=== PATIENT | male | born 2005 | race Caucasian/White ===

== ENCOUNTER 2023-03-13 14:00 | Outpatient (RCR) | payer BC, SELFPAY ==
[2023-03-19] MEDS: FLU VACC QS 23-24(6MS UP)CEL/PF 60 MCG/0.5 ML SYRINGE IM (16:05)
== END 2023-03-13 16:35 | disposition home or self-care (01) ==
LOC: VACCLI 14:00
PROVIDERS: PCP Family Medicine; Visit Provider Family Medicine
DX: Z23 Encounter for immunization (principal)
CPT/HCPCS: 90674; G0008

== ENCOUNTER 2023-09-02 13:43 | Outpatient (OUT) | payer BC, SELFPAY ==
[2023-09-02 14:27] LABS: Basophils Percent Auto 0.5 % (0.2-2.0); Eosinophils Absolute Auto 0.1 10^3/uL (0.0-0.7); Eosinophils Percent Auto 1.9 % (0.9-7.0); Hematocrit 47.3 % (42.0-54.0); Immature Granulocytes Abs Auto 0.01 10^3/uL (0.00-0.03); Immature Granulocytes Pct Auto 0.2 % (0.0-0.5); Lymphocytes Absolute Auto 2.1 10^3/uL (1.2-3.8); Lymphocytes Percent Auto 33.9 % (20.5-60.0); Mean Corpuscular HGB Conc 33.8 g/dL (29.9-35.2); Mean Corpuscular Hemoglobin 29.7 pg (25.9-34.0); Mean Corpuscular Volume 87.8 fL (80.0-94.0); Mean Platelet Volume 9.8 fL (9.5-13.5); Monocytes Absolute Auto 0.4 10^3/uL (0.3-0.8); Monocytes Percent Auto 6.7 % (1.7-12.0); Neutrophils Absolute Auto 3.6 10^3/uL (1.4-6.5); Neutrophils Percent Auto 56.8 % (43.0-75.0); Platelet Count 248 10^3/uL (150-450); Red Blood Count 5.39 10^6/uL (4.70-6.10); Red Cell Distribution Width 12.3 % (11.0-15.0); White Blood Count 6.3 10^3/uL (4.0-11.0)
[2023-09-02 14:35] LABS: Anion Gap 11.6; BUN Creatinine Ratio 14.8; Calcium 8.9 mg/dL (8.5-10.1); Carbon Dioxide 31.3 mmol/L (21.0-32.0); Chloride 103 mmol/L (98-107); Estimated GFR (African America >60 (>=60); Estimated GFR (Non-African Ame >60 (>=60); Glucose 73 mg/dL (74-106); Potassium 3.9 mmol/L (3.5-5.1); Sodium 142 mmol/L (136-145); Thyroid Stimulating Hormone 1.221 uIU/mL (0.358-3.740)
[2023-09-02 16:59] LABS: Mono Screen NEGATIVE (NEGATIVE)
[2023-09-02 17:00] LABS: Internal Control Within Normal Limits
== END 2023-09-02 13:44 | disposition home or self-care (01) ==
LOC: LAB 13:45
PROVIDERS: PCP Family Medicine; Visit Provider Family Medicine
DX: R53.83 Other fatigue (principal)
CPT/HCPCS: 36415; 80048; 82728; 84443; 85025; 86308

== ENCOUNTER 2024-03-22 13:24 | Outpatient (OUT) | payer BC, SELFPAY ==
--- NOTE | 2024-03-22 13:30 | ECG_ITS ---
[facility] Test Date: 2024-03-22 Pat Name: REKHA CARROLL Department: Room: - Gender: Male [employer] C[employer]er: : 2005 Requested By: JESSICA ORTIZ Order Number: [id number] Reading MD: GALILEA REEVES Measurements Intervals [place] Rate: 69 P: 55 [place]: 113 QRS: 86 QRSD: 101 T: 43 QT: 372 QTc: 400 Interpretive Statements SINUS RHYTHM WITH SHORT [place] INTERVAL WARNING: DATA QUALITY MAY AFFECT INTERPRETATION No previous ECG available for comparison Electronically Signed On 03-22-2024 20:28:31 EST by GALILEA REEVES
--- NOTE | 2024-03-22 13:30 | CA_ITS ---
Patient Name: REKHA CARROLL MR#: [id number] : 2005 Exam Date: 03/22/2024 Ordering Doctor: DR JESSICA ORTIZ M.D. ECHOCARDIOGRAM REPORT PROCEDURE: CA ECHO DOPPLER COMPLETE INDICATIONS: Chest pain, tachycardia COMPARISON: None. DESCRIPTION: COMPLETE ECHOCARDIOGRAM Real-time transthoracic echocardiography with 2D, M-mode, spectral and color flow Doppler performed. QUALITY: Technical quality was good. LEFT VENTRICLE: Normal chamber size. Normal left ventricular wall thickness. LV EF: Normal left ventricular ejection fraction, (>55%). DIASTOLIC: Normal diastolic function. ATRIAL SEPTUM: Visually appears intact. LEFT ATRIUM: Normal chamber size. RIGHT ATRIUM: Normal chamber size. RIGHT VENTRICLE: Normal chamber size. Normal right ventricular systolic function. TRICUSPID VALVE: Normal mobility and thickness. No stenosis with no regurgitation. MITRAL VALVE: Normal mobility and thickness. No evidence of mitral valve stenosis. There is no mitral annular calcification. Trivial mitral regurgitation. AORTIC VALVE: Normal trileaflet appearance. No visible sclerosis. Normal leaflet mobility. No evidence of aortic valve stenosis. No aortic regurgitation. AORTIC ROOT: Normal diameter and appearance. Ascending aorta is normal in size. PULMONIC VALVE: Normal thickness and mobility. No stenosis. Trace regurgitation. PERICARDIUM: No evidence of pericardial effusion. IVC: Normal size and Coll[place] with inspirations. PLEURA: CONCLUSION: Normal left ventricular stock function without wall motion abnormalities, ejection fraction 55% Normal right ventricle size and systolic function No significant valvular abnormalities Adult Echocardiography Procedure Report Left Ventricle LVEDD (3.7 - 5.6 cm): 4.03 cm LVESD (2.2 - 4.0 cm): 2.20 cm LVIVS thickness (0.6 - 1.2 cm): 1.02 cm LVPW thickness (0.5 - 1.0 cm): 0.61 cm e': 0.21 m/s E - e': 3.52 LVOT Max Gradient: 3.79 mm[Hg] LVOT Area (cm2): 0.97 m/s Peak Velocity (LVOT): 0.97 m/s Mean Velocity (LVOT): 0.61 m/s LVOT Diameter 2.50 cm Left Atrium LA Volume Index (2D A2C): 16.53 ml/m2 Left Atrium Systolic Dimension: 2.69 cm Mitral Valve MV E to A Ratio: 2.58 Mitral Valve A-Wave Peak Velocity: 0.28 m/s Mitral Valve E-Wave Peak Velocity: 0.73 m/s Right Ventricle Aorta AO Root Diam: 3.06 cm Ascending Ao Diam: 2.44 cm Aortic Valve AoV Area (Peak Derek): 5.11 cm2, 5.11 cm2 AoV Area (VTI): 4.44 cm2, 4.44 cm2 Peak Velocity(Antegrade Flow): 0.93 m/s Peak Gradient(Antegrade Flow): 3.48 mm[Hg] Mean Velocity(Antegrade Flow): 0.64 m/s Mean Gradient(Antegrade Flow): 1.90 mm[Hg] Velocity Time Integral: 19.91 cm Tricuspid Valve Pulmonic Valve Mean Gradient: 2.91 mm[Hg] Mean Velocity: 0.78 m/s Peak Velocity: 1.26 m/s, 0.96 m/s Peak Gradient: 3.68 mm[Hg], 6.39 mm[Hg] Right Atrium Right Atrium Systolic Pressure: 17.77 ml, 17.77 ml Dictated by: Dinh Diamond MD on 03/22/2024 at 15:40 Approved by: Dinh Diamond MD on 03/22/2024 at 15:44
== END 2024-03-22 13:25 | disposition home or self-care (01) ==
LOC: CARD 13:26
PROVIDERS: PCP Family Medicine; Visit Provider Family Medicine
DX: R00.0 Tachycardia, unspecified (principal); R07.9 Chest pain, unspecified
CPT/HCPCS: 93005; 93306

== ENCOUNTER 2024-04-06 08:01 | Outpatient (OUT) | payer BC, SELFPAY ==
--- NOTE | 2024-04-06 | PCN_ITS ---
CARDIAC STRESS TEST Requesting Physician: Procedure Date: 04/06/2024 EXERCISE STRESS TEST INDICATION FOR THE PROCEDURE: Chest pain. Procedure in details, including risks and benefits was discussed with the patient and he was agreeable to proceed. Resting EKG showed normal sinus rhythm, heart rate 77 beats per minute, normal EKG. Resting blood pressure 106/72 mm/Hg. The patient was exercised according to standard protocol, and he was able to finish 12 minutes and 43 seconds of exercise, achieving 16.1 METS and max heart rate of 173 beats per minute, which represents 86% of age predicted maximum heart rate. Peak blood pressure 160/82 mm/Hg. Exercise was terminated due to achievement of target heart rate and legs fatigue. The patient reported chest pain. EKG during exercise, at peak exercise, and during recovery did not show any significant T or ST changes or any arrhythmias. CONCLUSION: 1. Maximal stress test achieving 86% of age predicted maximum heart rate. 2. Good exercise terminals. 3. This stress test is negative for exercise induced ischemic EKG changes or arrhythmias. Patient reported chest pain at peak exercise, which resolved during recovery. MTDD
--- OUTSIDE RECORDS SUMMARY | 2024-04-06 08:07 | XMS_ITS | CCD ---
Author Organization [facility] Care Team Providers Care Portfolio Administrator Name Role Phone DR KELLY ORTIZ Attending Unavailable DIANA, DR KELLY Cooper Consulting Unavailable DR KELLY ORTIZ Primary Care Unavailable DR KELLY ORTIZ Admitting Unavailable Kelly Ortiz MD Primary Care Provider KELLY ORTIZ Primary Care Unavailable LATASHA HUTTON Attending Unavailable LATASHA HUTTON Referring Unavailable Rogerio Gutierrez Attending Unavailab Rogerio Alonzo Admitting Unavailab francine REEVES FAMILY, PHYSICIAN Primary Care Unavailable MRAILU DIAMOND Attending Unavailable Medications Completed/Discontinued Medications Medication Drug Class(es) Dates Sig (Normalized) Sig (Original) Amphetamine (1 source) Central Nervous System Stimulant amphetamine sulfate (EVEKEO ORAL) Take by mouth. 0 Active Comment on above: Take by mouth. famotidine 10 mg oral tablet (1 source) Histamine-2 Receptor Antagonist take 1 tablet by mouth twice daily famotidine (PEPCID) 10 mg tablet Take 10 mg by mouth two times a day. 0 Active Comment on above: Take 10 mg by mouth two times a day. lisdexamfetamine dimesylate 30 mg oral capsule (1 source) Central Nervous System Stimulant Start: 12-21-2022 take 1 capsule by mouth once daily in the morning lisdexamfetamine (VYVANSE) 30 mg capsule TAKE 1 CAPSULE BY ORAL ROUTE 1 TIME PER DAY IN THE MORNING TAKE 40 MG + 30 MG DAILY 0 12/21/2022 Active Comment on above: TAKE 1 CAPSULE BY OR AL ROUTE 1 TIME PER DAY IN THE MORNING TAKE 40 MG + 30 MG DAILY rimegepant sulfate (NURTEC ODT ORAL) (1 source) rimegepant sulfa te (NURTEC ODT ORAL) Take by mouth. 0 Active Comment on above: Take by mouth. Problems Active Problems Problem Classification Problem Date Documented Date Episodic/Chronic Attention-deficit, conduct, and disruptive behavior disorders (1 source) Attention deficit hyperactivity disorder; Translations: [Attention-deficit hyperactivity disorder, unspecified type] Onset: 07-02-2012 02-14-2023 Chronic Cardiac dysrhythmias (2 sources) Palpitations; Translations: [Palpitations] Onset: 03-22-2024 Episodic Headache; including migraine (1 source) Migraine; Translations: [Migraine, unspecified, not intractable, without status migrainosus] Onset: 07-02-2012 02-14-2023 Chronic Headache; including migraine (1 source) Headache; Translations: [Headache, unspecified headache type] 02-14-2023 Episodic Nonspecific chest pain (2 sources) Other chest pain; Translations: [Other chest pain] Onset: 03-22-2024 Episodic Other eye disorders (1 source) Red eye; Translations: [Other specified disorders of eye and adnexa] 02-14-2023 Episodic Unclassified (3 sources) CONTACT W/AND (SUSP) EXPOS COVID-19; Translations: [CONTACT W/AND (SUSP) EXPOS COVID-19] Onset: 02-28-2021 Past or Other Problems Problem Classification Problem Date Documented Da te Episodic/Chronic Unclassified (1 source) CONTACT W/AND (SUSP) EXPOS COVID-19; Translations: [CONTACT W/AND (SUSP) EXPOS COVID-19] Onset: 02-22-2021 Results Test Name Value Interpretation Reference Range [facility] ity Office Visiton 03-22-2024 Follow-up visit [id number] Rekha Carroll 2005 M Date Provider Department Center 03/22/2024 [id number] DIAMOND [facility] Family History Problem Relation Age of Onset Hypertension Mother Diabetes type II Father Hypertension Father Stroke Maternal Grandfather Family Status - Relation Status Age at Mother Father Maternal Grandfather Level of Service:89404 [place] OFFICE/OUTPATIENT NEW MODERATE MDM 45 MINUTES Reason for Visit and Comments: Palpitations [335934] - Had echo and EKG done this morning. Says he's stopped taking pysch med and stopped drinking caffeine in the past and still feels palpitations and chest pains. Chest Pain [359485] - C/o chest hurting . Says this always occurs with episodes of palpitations. Shortness of Breath [[id number]] - A little Normal [facility] CNOVon 02-14-2023 CNOV Office Visit (EXPUSQ ) REKHA CARROLL ([id number]) [birth year] M Date Time Provider Department 02/14/23 11:25 AM YURIY BORJA EXPUSQ During your visit today, we recorded the following information about you: Temperature Pulse Blood pressure Weight 98.5 degrees 90/minute 124/80 56.7 kg Yuriy Borja APRN.MARKETING OPERATIONS INTERN 02/14/2023 12:58 PM Signed 17 year old male with a pmhx of headaches; presents to the clinic today for an evaluation of a headache. Pt states that he woke up with discomfort to the right side of his forehead and eye area. States that this will be where he typically gets his headaches; however does not usually have ocular symptoms. Reports that over the preceeding days; he has noticed that both of his eyes would be red in the morning before self resolving. Today; pt states that his right eye symptoms persisted. Pt states that his headache symptoms are similar in location, duration, and character. Recently placed on Nurtec and took one this morning without improvement. Only has taken this one time before; is unsure of its efficacy on his chronic symptoms. Denies any CL use, mucoid drainage, fever, chills, dizziness, worst headache of life, thunderclap headache, vision changes, photophobia, itching, drainage, trauma or pain with eye movement. The history is provided by the patient. No russian language instructor was used. BP 124/80 (BP Site: Right Arm, BP Position: Sitting, BP Cuff Size: Regular Adult) Pulse 90 Temp 36.9 ?C (98.5 ?F) (Temporal) Wt 56.7 kg (125 lb) SpO2 100% ALLERGIES No Known Allergies Current Outpatient Medications Medication Sig Dispense Refill lisdexamfetamine (VYVANSE) 30 mg capsule TAKE 1 CAPSULE BY ORAL ROUTE 1 TIME PER DAY IN THE MORNING TAKE 40 MG + 30 MG DAILY famotidine (PEPCID) 10 mg tablet Take 10 mg by mouth two times a day. rimegepant sulfate (NURTEC ODT ORAL) Take by mouth. amphetamine sulfate (EVEKEO ORAL) Take by mouth. No current facility-administered medications for this visit. There is no problem list on file for this patient. Tobacco Use: Never Alcohol Use: Never Drug Use: Never No family history on file. Review of Systems Constitutional: Negative for chills, fatigue and fever. HENT: Negative for congestion, dental problem, drooling, ear discharge, ear pain, facial swelling, hearing loss, mouth sores, nosebleeds, postnasal drip, rhinorrhea, sinus pressure, sinus pain, sneezing, sore throat, tinnitus, trouble swallowing and voice change. Eyes: Positive for pain (mild discomfort) and redness. Negative for photophobia, discharge, itching and visual disturbance. Respiratory: Negative for cough, chest tightness, shortness of breath and wheezing. Cardiovascular: Negative for chest pain and palpitations. Gastrointestinal: Negative for abdominal pain, diarrhea, nausea and vomiting. Musculoskeletal: Negative for back pain, myalgias and neck stiffness. Skin: Negative for pallor. Neurological: Positive for headaches. Negative for dizziness, tremors, seizures, syncope, facial asymmetry, speech difficulty, weakness, light-headedness and numbness. Physical Exam Vitals reviewed. Constitutional: General: He is not in acute distress. Appearance: Normal appearance. He is normal weight. He is not ill-appearing, toxic-appearing or diaphoretic. HENT: Head: Normocephalic and atraumatic. Right Ear: Tympanic membrane, ear canal and external ear normal. There is no impacted cerumen. Left Ear: Tympanic membrane, ear canal and external ear normal. There is no impacted cerumen. Nose: Nose normal. No congestion. Mouth/Throat: Mouth: Mucous membranes are moist. Pharynx: No oropharyngeal exudate or posterior oropharyngeal erythema. Eyes: General: Lids are normal. Vision grossly intact. No visual field deficit. Right eye: No foreign body, discharge or hordeolum. Left eye: No foreign body, discharge or hordeolum. Extraocular Movements: Extraocular movements intact. Right eye: Normal extraocular motion and no nystagmus. Left eye: Normal extraocular motion and no nystagmus. Conjunctiva/sclera: Right eye: Right conjunctiva is injected. Pupils: Pupils are equal, round, and reactive to light. Right eye: Pupil is round, reactive and not sluggish. No corneal abrasion or fluorescein uptake. Ritu exam negative. Funduscopic exam: Right eye: Red reflex present. Slit lamp exam: Right eye: No corneal flare, corneal ulcer or foreign body. Comments: No abnormality noted on wood's lamp examination Cardiovascular: Rate and Rhythm: Normal rate and regular rhythm. Heart sounds: Normal heart sounds. Pulmonary: Effort: Pulmonary effort is normal. No respiratory distress. Breath sounds: Normal breath sounds. No stridor. No wheezing, rhonchi or rales. Chest: Chest wall: No tenderness. Musculoskeletal: General: Normal range of motion. (more content not included)... Normal [facility] Covid-19 PCR ([facility])on SARS-CoV-2 (COVID-19) RNA KAY+probe Ql (Unsp spec) Not detected Normal NOT DETECTED [facility] Comment on above: Result Comment: This test is not yet anselmo roved or cleared by the [place] FDA. When there are no FDA-approved or cleared tests available, and other criteria are met, FDA can make tests available under an emergency access mechanism called an Emergency Use Authorization (EUA). The EUA for this test is supported by the Combat Control of Health and Human Service's (HHS's) declaration that circumstances exist to justify the emergency use of in vitro diagnostics for the detection and/or diagnosis of the virus that causes COVID-19. This EUA will remain in effect (meaning this test can be used) for the duration of the COVID-19 declaration justifying emergency of IVDs, unless it is terminated or revoked by FDA (after which the test may no longer be used). When diagnostic testing is negative, the possibility of a false negative should be considered in the context of a patient's recent exposures and the presence of clinical signs and symptoms consistent with SARS-CoV-2. Performed By: #### [facility] #### [facility] [address] [address] [address] Leila Bell Vital Signs Date Time Vital Sign Value Performing Clinician Marina soolrzano 02-14-2023 11:39-0500 Body temperature 98.49 [degF] Yuriy Puljic METER TESTER PRIMARY.MARKETING OPERATIONS INTERN Work Phone: [facility] 02-14-2023 11:39-0500 Body weight 56.7 kg Yuriy Puljic METER TESTER PRIMARY.MARKETING OPERATIONS INTERN Work Phone: [facility] 02-14-2023 11:39-0500 Diastolic blood pressure 80 mm[Hg] Yuriy Puljic METER TESTER PRIMARY.MARKETING OPERATIONS INTERN Work Phone: [facility] 02-14-2023 11:39-0500 Heart rate 90 /min Yuriy Puljic METER TESTER PRIMARY.MARKETING OPERATIONS INTERN Work Phone: [facility] 02-14-2023 11:39-0500 SaO2% (BldA) [Mass fraction] 100 % Yuriy Puljic METER TESTER PRIMARY.MARKETING OPERATIONS INTERN Work Phone: [facility] 02-14-2023 11:39-0500 Systolic blood pressure 124 mm[Hg] Yuriy Puljic METER TESTER PRIMARY.MARKETING OPERATIONS INTERN Work Phone: [facility] Encounters Encounter Date Encounter Type Care Provider Facility Start: 03-22-2024 End: 03-22-2024 ambulatory [facility] Start: 02-17-2024 ambulatory Rogerio Knapp acility:[facility] Start: 02-24-2023 End: 02-24-2023 ambulatory LATASHA HUTTON Not Available Start: 02-14-2023 End: 02-14-2023 ambulatory KELLY ORTIZ Facility:[facility] Start: 02-14-2023 End: 02-14-2023 Office outpatient new 30 minutes Yuriy Puljic METER TESTER PRIMARY.MARKETING OPERATIONS INTERN Work Phone: [facility] Comment on above: Red eye (Primary Dx) ; Headache, unspecified headache type Start: 02-22-2021 End: 02-22-[address] KELLY ORTIZ Facility:[facility] Plan of Treatment Date Care Activity Detail Author Start: 01-26-2025 Urine microalbumin profile DTa P,Tdap,Td Vaccine (7 - Td or Tdap) [facility] Start: 11-15-2022 Covid-19 Vaccine ( season) Covid-19 Vaccine ( season) [facility] Start: 11-15-2022 Influenza vaccination Influenza Vacc ine (#1) [facility] Start: 03-17-2022 Depression Assessment Depression Ass essment [facility] Start: 11-23-2021 Meningococcal B Vacc ine: Consider Based On Risk (2 of 2 - Risk Bexsero 2-dose series) Meningococcal B Vaccine: Consider Based On Risk (2 of 2 - Risk Bexsero 2-dose series) [facility] Start: 2021 Hepatitis C Screening Hepatitis C Sc reening [facility] Start: 2021 HIV Screening HIV Screening [facility] Start: 2017 Peds To Adult Transi tion Annual Assessment Peds To Adult Transition Annual Assessment [facility] Start: 2015 Peds To Adult Transi tion Initial Discussion Peds To Adult Transition Initial Discussion [facility] Immunizations Immunization Date Immunization Notes Care Provider Mita wolff 01-04-2020 influenza virus vacc ine, unspecified formulation Yuriy Borja APRN.CNP Work Phone: [facility] Payers Date Payer Category Payer Self-pay 2022 Unknown [id number] 2019 Unknown [id number] 2018 Unknown MMO [employer] PPO [id number] 2018-Present [phone] [address] [place] [address] PPO [id number] 2018 Unknown [id number] 2003 Unknown [id number] 1966 Unknown [id number] Unknown [id number] Social History Date Type Detail Facility Start: 02-14-2023 Tobacco smoking stat us NHIS Never smoked tobacco [facility] Start: 02-14-2023 Tobacco use and exposure Smoke less tobacco non-user [facility] Start: 02-14-2023 Alcohol intake Lifetime non-d griffin (finding) [facility] Start: 02-14-2023 History of Social function [facility] Start: 02-14-2023 Tobacco use panel [facility] Start: 2005 Sex Assigned At [facility] file [facility] Progress note 03-22-2024 Note Date & Type Note Facility 03-22-2024 Note [facility] Note Reason for cardiology consult: Chest pain and palpitation Chief Complaint: Chest pain and palpitation HPI: Rekha Carroll is a 18 y.o. male with history of ADHD. No prior cardiac history. He describes episodes of palpitation when he feels that his suddenly his heart rate goes very fast associated with chest pain, feeling hot and sweaty, usually lasts 15 to 30 minutes and it stops also suddenly. He usually feels weak afterward and he needs to lay down. He states that episodes started about 2 to 3 months ago. They occurs probably 2-3 times a months but when they occur they may happen 3 times a day. He reports that he feels shaking when his heart rate is very fast. He denies feeling dizzy or passing out. He reports that he stopped Vyvanse and caffeine but that did not help. He drinks a lot of water. He reports that he takes Vyvans only when his school to help him to concentrate. He is physically active and he denies any chest pain or shortness of breath at rest or with exertion. He denies orthopnea or paroxysmal nocturnal dyspnea or legs edema or leg discomfort on exertion. As mentioned above he stopped caffeine. He denies smoking, alcohol or illicit drugs. Regarding family history both parents have hypertension, father has diabetes, maternal grandparent had stroke. Cardiology ROS: GENERAL: Denies fever, chills, night sweats, weight loss. HEENT: Denies changes in vision, photophobia, changes in hearing, epistaxis, oral bleeding. CARDIOVASCULAR: Denies chest pain, exertional dyspnea, orthopnea/PND, lower extremity edema, he reports episodes of palpitation associated with chest pain and feeling hot followed by overall weakness. RESPIRATORY: Denies SOB, coughing, wheezing GI: Denies abdominal pain, nausea/vomiting, heartburn, melena/hematochezia. RENAL: Denies dysuria, hematuria, flank pain. MSK: Denies muscle weakness/pain, arthralgias/joint pain. NEUROLOGIC: Denies LOC, weakness, numbness, headaches. SKIN: Denies abnormal rashes or bleeding. PSYCH: Denies significant anxiety, depression, sleep disturbances. Past Medical History He has a past medical history of ADHD and Asthma. Surgical History He has no past surgical history on file. Social History He reports that he has never smoked. He has never used smokeless tobacco. He reports that he does not currently use alcohol. He reports that he does not use drugs. Family History Family History Problem Relation Name Age of Onset Hypertension Mother Diabetes type II Father Hypertension Father Stroke Maternal Grandfather Allergies Patient has no known allergies. Medications Current Outpatient Medications: lisdexamfetamine (Vyvanse) 70 mg capsule, Take 70 mg by mouth in the morning., Disp: , Rfl: Last Recorded Vitals Visit Vitals BP 107/73 (BP Location: Right arm, Patient Position: Sitting) Pulse 75 Ht 1.626 m (5' 4 ) Wt 58.5 kg (129 lb) SpO2 98% BMI 22.14 kg/m??? Smoking Status Never BSA 1.63 m??? Physical Examination: GENERAL: alert and oriented x3, well developed, in no acute distress. HEAD: atraumatic, normocephalic. EYES: DELICIA, EOMI. NECK: trachea midline, no JVD present, no carotid bruits present. CARDIAC: S1, S2 present. RRR. No murmur, rubs, or gallops. RESPIRATORY: CTAB, no increased effort of breathing, no rales, rhonchi, or wheezing. ABDOMEN: soft, nontender, nondistended. EXTREMITIES: no lower extremity edema, peripheral pulses are 2+ bilaterally. No rash/skin discoloration present. NEURO: strength/sensation equal and symmetric in bilateral upper and lower extremities. PSYCH: appropriate mood, affect, and judgement. Labs: 09/02/2023 White blood count 6.3, hemoglobin 16, hematocrit 47, platelets 248 Sodium 142, potassium 3.9, BUN 12, creatinine 0.81, GFR above 60, glucose 73, calcium 8.9 TSH 1.22 Last Images: EKG 03/22/2024 showed normal sinus rhythm with short WA interval, otherwise normal EKG. Echo 03/22/2024 Assessment and Plan: Palpitations associated with chest pain, feeling hot and then tired after resolved. Probably represents paroxysmal SVT He stopped Vyvanse for 1 month but the symptoms continue to happen He totally stopped caffeine and also there was no effect EKG and echo today are normal ADHD, currently on Vyvanse Plan: Continue with current behavior avoiding caffeine and alcohol and increasing fluid intake 30-day event monitor Treadmill stress test to evaluate chest pain and also to evaluate exercise-induced tachyarrhythmia Follow-up in about 6 weeks Marilu Diamond MD,[facility] Progress note 02-14-2023 Note Date & Type Note Facility 02-14-2023 Note HNO ID: [id number] Author: Yuriy Borja APRN.MARKETING OPERATIONS INTERN Service: ? Author Type: Nurse Practitioner Type: Progress Notes Filed: 02/14/2023 12:58 PM Note Text: 17 year old male with a pmhx of headaches; presents to the clinic today for an evaluation of a headache. Pt states that he woke up with discomfort to the right side of his forehead and eye area. States that this will be where he typically gets his headaches; however does not usually have ocular symptoms. Reports that over the preceeding days; he has noticed that both of his eyes would be red in the morning before self resolving. Today; pt states that his right eye symptoms persisted. Pt states that his headache symptoms are similar in location, duration, and character. Recently placed on Nurtec and took one this morning without improvement. Only has taken this one time before; is unsure of its efficacy on his chronic symptoms. Denies any CL use, mucoid drainage, fever, chills, dizziness, worst headache of life, thunderclap headache, vision changes, photophobia, itching, drainage, trauma or pain with eye movement. The history is provided by the patient. No russian language instructor was used. BP 124/80 (BP Site: Right Arm, BP Position: Sitting, BP Cuff Size: Regular Adult) Pulse 90 Temp 36.9 ?C (98.5 ?F) (Temporal) Wt 56.7 kg (125 lb) SpO2 100% ALLERGIES No Known Allergies Current Outpatient Medications Medication Sig Dispense Refill lisdexamfetamine (VYVANSE) 30 mg capsule TAKE 1 CAPSULE BY ORAL ROUTE 1 TIME PER DAY IN THE MORNING TAKE 40 MG + 30 MG DAILY famotidine (PEPCID) 10 mg tablet Take 10 mg by mouth two times a day. rimegepant sulfate (NURTEC ODT ORAL) Take by mouth. amphetamine sulfate (EVEKEO ORAL) Take by mouth. No current facility-administered medications for this visit. There is no problem list on file for this patient. Tobacco Use: Never Alcohol Use: Never Drug Use: Never No family history on file. Review of Systems Constitutional: Negative for chills, fatigue and fever. HENT: Negative for congestion, dental problem, drooling, ear discharge, ear pain, facial swelling, hearing loss, mouth sores, nosebleeds, postnasal drip, rhinorrhea, sinus pressure, sinus pain, sneezing, sore throat, tinnitus, trouble swallowing and voice change. Eyes: Positive for pain (mild discomfort) and redness. Negative for photophobia, discharge, itching and visual disturbance. Respiratory: Negative for cough, chest tightness, shortness of breath and wheezing. Cardiovascular: Negative for chest pain and palpitations. Gastrointestinal: Negative for abdominal pain, diarrhea, nausea and vomiting. Musculoskeletal: Negative for back pain, myalgias and neck stiffness. Skin: Negative for pallor. Neurological: Positive for headaches. Negative for dizziness, tremors, seizures, syncope, facial asymmetry, speech difficulty, weakness, light-headedness and numbness. Physical Exam Vitals reviewed. Constitutional: General: He is not in acute distress. Appearance: Normal appearance. He is normal weight. He is not ill-appearing, toxic-appearing or diaphoretic. HENT: Head: Normocephalic and atraumatic. Right Ear: Tympanic membrane, ear canal and external ear normal. There is no impacted cerumen. Left Ear: Tympanic membrane, ear canal and external ear normal. There is no impacted cerumen. Nose: Nose normal. No congestion. Mouth/Throat: Mouth: Mucous membranes are moist. Pharynx: No oropharyngeal exudate or posterior oropharyngeal erythema. Eyes: General: Lids are normal. Vision grossly intact. No visual field deficit. Right eye: No foreign body, discharge or hordeolum. Left eye: No foreign body, discharge or hordeolum. Extraocular Movements: Extraocular movements intact. Right eye: Normal extraocular motion and no nystagmus. Left eye: Normal extraocular motion and no nystagmus. Conjunctiva/sclera: Right eye: Right conjunctiva is injected. Pupils: Pupils are equal, round, and reactive to light. Right eye: Pupil is round, reactive and not sluggish. No corneal abrasion or fluorescein uptake. Ritu exam negative. Funduscopic exam: Right eye: Red reflex present. Slit lamp exam: Right eye: No corneal flare, corneal ulcer or foreign body. Comments: No abnormality noted on wood's lamp examination Cardiovascular: Rate and Rhythm: Normal rate and regular rhythm. Heart sounds: Normal heart sounds. Pulmonary: Effort: Pulmonary effort is normal. No respiratory distress. Breath sounds: Normal breath sounds. No stridor. No wheezing, rhonchi or rales. Chest: Chest wall: No tenderness. Musculoskeletal: General: Normal range of motion. Cervical back: Normal range of motion and neck supple. Skin: General: Skin is warm. Capillary Refill: Capillary refill takes less than 2 seconds. Neurological: General: No focal deficit present. Mental Status: He is alert and oriented to person, place, a (more content not included)... [facility] Instructions 02-14-2023 Patient Instructions Note Date & Type Note Facility 02-14-2023 Instructions Yuriy Borja APRN.[facility] - 02/14/2023 12:21 PM EST [phone] [facility] PATIENT INFO CONJUNCTIVITIS OVERVIEW Conjunctivitis, also called pinkeye , is defined as an inflammation of the conjunctiva. The conjunctiva is the thin membrane that lines the inner surface of the eyelids and the whites of the eyes (called the sclera). Conjunctivitis can affect children and adults. The most common symptoms of conjunctivitis include a red eye and discharge. There are many potential causes of conjunctivitis, including bacterial or viral infections, allergies, or a non-specific condition (eg, a foreign body in the eye). All types of conjunctivitis cause a red eye, although not everyone with a red eye has conjunctivitis. TYPES OF CONJUNCTIVITIS There are four main types of conjunctivitis: bacterial, viral, allergic, and non-specific. Most cases of infectious conjunctivitis are viral in adults and children; however, bacterial conjunctivitis is more common in children than in adults. Viral conjunctivitis -- Viral conjunctivitis is typically caused by a virus that can also cause the common cold. A person may have symptoms of conjunctivitis alone, or as part of a general cold syndrome, with swollen lymph nodes (glands), fever, a sore throat, and runny nose. Viral conjunctivitis is highly contagious. It is spread by contact, usually with objects which have come into contact with the infected person's eye secretions. As examples, the virus can be transmitted when an infected person touches their eye and then touches another surface (eg, door handle) or shares an object that has touched their eye (eg, a towel or pillow case). The most common symptoms of viral conjunctivitis include redness, watery or mucus discharge, and a burning, dinorah, or gritty feeling in one eye. Some people have morning crusting followed by watery discharge, perhaps with some scant mucus discharge throughout the day. The second eye usually becomes infected within 24 to 48 hours. There is no cure for viral conjunctivitis. Recovery can begin within days, although the symptoms frequently get worse for the first three to five days, with gradual improvement over the following one to two weeks for a total course of two to three weeks. Some people experience morning crusting that continues for up to two weeks after the initial symptoms, although the daytime redness, irritation, and tearing should be much improved. Bacterial conjunctivitis -- Bacterial conjunctivitis is highly contagious, often affecting multiple family members or children within a classroom. Bacterial conjunctivitis is spread by contact, usually with objects which have come into contact with the infected person's eye secretions. As examples, the virus can be transmitted when an infected person touches their eye and then touches another surface (eg, door handle) or shares an object that has touched their eye (eg, a towel or pillow case). The most common symptoms of bacterial conjunctivitis include redness and thick discharge from one eye, although both eyes can become infected. The discharge may be yellow, white, or green, and it usually continues to drain throughout the day. The affected eye often is stuck shut in the morning. Most types of bacterial conjunctivitis resolve quickly and cause no permanent damage when treated with antibiotic eye drops or ointment Non-specific conjunctivitis -- It is possible to develop a red eye and discharge that is not caused by an infection or allergy. The most common causes include one of the following. People with a dry eye may have chronic or intermittent redness or discharge. A person whose eyes are irrigated after a chemical splash may have redness and discharge. A person with a foreign body (eg, dust, eyelash) in the eye may have redness and discharge for 12 to 24 hours after the object is removed. All of these problems generally improve spontaneously within 24 hours. CONJUNCTIVITIS TREATMENT The treatment of conjunctivitis depends upon the cause. For this reason, it is important to have the correct diagnosis before treatment begins. Viral conjunctivitis treatment -- A topical antihistamine/decongestant eye drop may help to relieve the itching and irritation of viral conjunctivitis. These drops are available without a prescription in most pharmacies. However, particular care must be taken to avoid spreading viral infections from one eye to the other -- apply drops only to affected eye and wash hands thoroughly after application. Similar to cold medicines, this treatment may reduce the symptoms but does not shorten the course of the infection. Another option is to use warm or cool compresses, as needed. The irritation and discharge may get worse for three to five days before getting better, and symptoms can persist for two to three weeks. Bacterial conjunctivitis treatment -- Bacterial conjunctivitis is usually treated with an antibiotic eye drop or ointment. When started early, treatment helps to shorten the duration of symptoms, although most cases do resolve spontaneously if no treatment is used. Adults -- Adults are usually treated with an antibiotic eye drop or ointment for five to seven days. Redness, irritation, and eye discharge should begin to improve within 24 to 48 hours. If there is no improvement or if the condition worsens within this time, the person should be evaluated by an appliance counselor. Contact lens wearers -- People who wear contact lenses should be evaluated by a healthcare provider before treatment begins; this is to confirm the diagnosis of conjunctivitis and to be sure that another, more serious condition related to contact lens use (an infection of the cornea), is not present. People who wear contact lenses should avoid wearing the lenses during the first 24 hours of treatment, or until the eye is no longer red. The contact case should be thrown away and the contacts disinfected overnight or replaced (if disposable). Return to work/school -- The safest approach to avoid spreading viral and bacterial conjunctivitis to others is to stay home until there is no longer any discharge from the eye(s). However, this is not practical for most students and for those who work outside the home. Most daycare centers and schools require that students receive 24 hours of eye drops or ointment before returning to school. This treatment helps to prevent the spread of bacterial conjunctivitis, but is not necessary or helpful for children with viral conjunctivitis. Viral conjunctivitis is similar to a cold because it spreads easily between people. Younger children, who may not remember to wash their hands or avoid touching their eyes, should probably not attend school until the discharge has resolved. Older students or adults may choose to attend school/work, although they should limit close contact with others. In addition, adults who have contact with the very old, the very young, and people with a weakened immune system should limit contact with these susceptible individuals. Non-specific conjunctivitis treatment -- The conjunctiva heals quickly after it is injured, and non-specific conjunctivitis usually resolves within a few days without any treatment. However, the eye may feel better faster when it is treated with a lubricant, such as drops or ointments. These products are available without a prescription in most pharmacies. Preservative-free preparations are more expensive and are necessary only for people with a severe case of dry eye and those who are allergic to preservatives. Lubricant drops can be used as often as hourly with no side effects. The ointment provides longer lasting relief but blurs vision temporarily. For this reason, some people use ointment only at bedtime. It may be worthwhile to switch brands if one brand of drop or ointment is irritating, since each preparation contains different active and inactive ingredients and preservatives. Antibiotic or steroid eye drops/ointments are not recommended unless there is a specific reason they are needed (eg, a bacterial infection or inflammatory condition). Using these treatments when they are not needed can lead to serious complications. If the symptoms of conjunctivitis do not improve within two weeks, an examination with an appliance counselor may be recommended. CONJUNCTIVITIS PREVENTION Bacterial and viral conjunctivitis are both highly contagious and spread by direct contact with secretions or contact with contaminated objects. Simple hygiene measures can help minimize transmission to others. Adults or children with bacterial or viral conjunctivitis should not share handkerchiefs, tissues, towels, cosmetics, or bed sheets/pillows with uninfected family or friends. Hand washing is an essential and highly effective way to prevent the spread of infection. Hands should be wet with water and plain soap, and rubbed together for 15 to 30 seconds. It is not necessary to use antibacterial hand soap. Teach children to wash their hands before and after eating and after touching the eyes, coughing, or sneezing. Alcohol-based hand rubs are a good alternative for disinfecting hands if a sink is not available. Hand rubs should be spread over the entire surface of hands, fingers, and wrists until dry, and may be used several times. These rubs can be used repeatedly without skin irritation or loss of effectiveness. HEADACHE GENERAL INFORMATION: Almost everyone has a headache occasionally. Most headaches are caused by tension, eye strain, or emotional upset. Headaches can also occur with many medical illnesses. They may be a side effect of some medications. A headache that occurs without other symptoms and only lasts a few hours probably isn't a cause for concern. INSTRUCTIONS: 1. You may use pitr-soc-rhpupog pain medication such as acetaminophen, ibuprofen, or aspirin unless your doctor recommends otherwise. 2. Try some of the following measures to relieve your headache: Stretch and massage the muscles in your shoulders, neck, jaw, and scalp. Take a hot bath. Rest in a quiet, darkened room. Place a warm or cold wet cloth (whichever feels better to you) over the aching area. 3. Don't skip meals or delay meals for very long. Drink plenty of fluids. 4. Avoid alcoholic beverages and cigarette smoking. These often make a headache worse. 5. Get plenty of rest. A good night's sleep often is the best way to relieve a headache. CONTACT YOUR DOCTOR IF: 1. Your headache gets worse or lasts longer than 24 hours. 2. You develop a temperature over 100.5 F (38 C) 3. You need to take medicine to relieve headache pain more than 3 times a week. RETURN TO THE ED IF: 1. Your headache is different from any headache you ever had before, or is the worst headache of your life. 2. You feel confused or drowsy. 3. Your neck feels stiff. 4. You have a temperature of 102 F (39 C) or higher. 5. You have eye problems such as sensitivity to light or blurred or double vision. 6. You start to vomit. 7. You have difficulty walking, talking, or moving your arms or legs. documented in this encounter [facility] History of Present illness Narrative 02-14-2023 Yuriy Borja APRN.CNP - 02/14/2023 11:45 AM EST Note Date & Type Note Facility 02-14-2023 History of Presen t illness Narrative Images from the original note were not included. 17 year old male with a pmhx of headaches; presents to the clinic today for an evaluation of a headache. Pt states that he woke up with discomfort to the right side of his forehead and eye area. States that this will be where he typically gets his headaches; however does not usually have ocular symptoms. Reports that over the preceeding days; he has noticed that both of his eyes would be red in the morning before self resolving. Today; pt states that his right eye symptoms persisted. Pt states that his headache symptoms are similar in location, duration, and character. Recently placed on Nurtec and took one this morning without improvement. Only has taken this one time before; is unsure of its efficacy on his chronic symptoms. Denies any CL use, mucoid drainage, fever, chills, dizziness, worst headache of life, thunderclap headache, vision changes, photophobia, itching, drainage, trauma or pain with eye movement. The history is provided by the patient. No russian language instructor was used. BP 124/80 (BP Site: Right Arm, BP Position: Sitting, BP Cuff Size: Regular Adult) Pulse 90 Temp 36.9 C (98.5 F) (Temporal) Wt 56.7 kg (125 lb) SpO2 100% ALLERGIES No Known Allergies Current Outpatient Medications Medication Sig Dispense Refill lisdexamfetamine (VYVANSE) 30 mg capsule TAKE 1 CAPSULE BY ORAL ROUTE 1 TIME PER DAY IN THE MORNING TAKE 40 MG + 30 MG DAILY famotidine (PEPCID) 10 mg tablet Take 10 mg by mouth two times a day. rimegepant sulfate (NURTEC ODT ORAL) Take by mouth. amphetamine sulfate (EVEKEO ORAL) Take by mouth. No current facility-administered medications for this visit. There is no problem list on file for this patient. Tobacco Use: Never Alcohol Use: Never Drug Use: Never No family history on file. Review of Systems Constitutional: Negative for chills, fatigue and fever. HENT: Negative for congestion, dental problem, drooling, ear discharge, ear pain, facial swelling, hearing loss, mouth sores, nosebleeds, postnasal drip, rhinorrhea, sinus pressure, sinus pain, sneezing, sore throat, tinnitus, trouble swallowing and voice change. Eyes: Positive for pain (mild discomfort) and redness. Negative for photophobia, discharge, itching and visual disturbance. Respiratory: Negative for cough, chest tightness, shortness of breath and wheezing. Cardiovascular: Negative for chest pain and palpitations. Gastrointestinal: Negative for abdominal pain, diarrhea, nausea and vomiting. Musculoskeletal: Negative for back pain, myalgias and neck stiffness. Skin: Negative for pallor. Neurological: Positive for headaches. Negative for dizziness, tremors, seizures, syncope, facial asymmetry, speech difficulty, weakness, light-headedness and numbness. Physical Exam Vitals reviewed. Constitutional: General: He is not in acute distress. Appearance: Normal appearance. He is normal weight. He is not ill-appearing, toxic-appearing or diaphoretic. HENT: Head: Normocephalic and atraumatic. Right Ear: Tympanic membrane, ear canal and external ear normal. There is no impacted cerumen. Left Ear: Tympanic membrane, ear canal and external ear normal. There is no impacted cerumen. Nose: Nose normal. No congestion. Mouth/Throat: Mouth: Mucous membranes are moist. Pharynx: No oropharyngeal exudate or posterior oropharyngeal erythema. Eyes: General: Lids are normal. Vision grossly intact. No visual field deficit. Right eye: No foreign body, discharge or hordeolum. Left eye: No foreign body, discharge or hordeolum. Extraocular Movements: Extraocular movements intact. Right eye: Normal extraocular motion and no nystagmus. Left eye: Normal extraocular motion and no nystagmus. Conjunctiva/sclera: Right eye: Right conjunctiva is injected. Pupils: Pupils are equal, round, and reactive to light. Right eye: Pupil is round, reactive and not sluggish. No corneal abrasion or fluorescein uptake. Ritu exam negative. Funduscopic exam: Right eye: Red reflex present. Slit lamp exam: Right eye: No corneal flare, corneal ulcer or foreign body. Comments: No abnormality noted on wood's lamp examination Cardiovascular: Rate and Rhythm: Normal rate and regular rhythm. Heart sounds: Normal heart sounds. Pulmonary: Effort: Pulmonary effort is normal. No respiratory distress. Breath sounds: Normal breath sounds. No stridor. No wheezing, rhonchi or rales. Chest: Chest wall: No tenderness. Musculoskeletal: General: Normal range of motion. Cervical back: Normal range of motion and neck supple. Skin: General: Skin is warm. Capillary Refill: Capillary refill takes less than 2 seconds. Neurological: General: No focal deficit present. Mental Status: He is alert and oriented to person, place, and time. Mental status is at baseline. GCS: GCS eye subscore is 4. GCS verbal subscore is 5. GCS motor subscore is 6. Cranial Nerves: Cranial nerves 2-12 are intact. No cranial nerve deficit, dysarthria or facial asymmetry. Sensory: Sensation is intact. No sensory deficit. Motor: Motor function is intact. Coordination: Coordination is intact. Gait: Gait is intact. Psychiatric: Mood and Affect: Mood normal. Behavior: Behavior normal. Thought Content: Thought content normal. Judgment: Judgment normal. 1. Headache, unspecified headache type 2. Red eye - VSS, pt is in no acute distress, appears well hydrated and non-toxic. NO red flag symptoms of red eye or headache at this time. Graff lamp and neuro exam are WNL. - mild injection noted to right eye; likely related to inflammation ? Allergy. Pt declined antihistamine eye drop and will try PO antihistamine and f/u with his eye doctor - Recommended OTC eye lubricated drops for symptoms and consult placed to [facility] as well - Reviewed s/s that would require emergent evaluation. - CONSULT TO OPHTHALMOLOGY; Future - instructed on course of illness along with side effects of medication Red flag symptoms discussed with the patient and when to go to ER. Patient verbalized understanding. The above care plan was discussed in detail with Rekha Carroll and all questions have been answered. Given return precautions as well as appropriate recommendations for routine follow up in 1 week if symptoms fail to improve. Yuriy Frias [address] [place] [id number] [facility] [phone] documented in this encounter [facility] Evaluation note Note Date & Type Note Facility Evaluation note Diagnosis Red eye- Primary Redness or discharge of eye Headache, unspecified headache type documented in this encounter [facility] Summary Purpose Family History No Family History Records FoundNo Family History Records FoundNo Family History Records FoundNo Family History Records FoundNo Family History Records Found Advance Directives No Advanced Directives Records FoundNo Advanced Directives Records FoundNo Advanced Directives Records FoundNo Advanced Directives Records FoundNo Advanced Directives Records Found Reason for Referral Specialty Diagnoses / Procedures Referred By Clarence garza Referred To Contact Ophthalmology Diagnoses Red eye Procedures CONSULT TO OPHTHALMOLOGY OFFICE/OUTPATIENT [facility] 60-74 MINUTES Yuriy Borja APRN.MARKETING OPERATIONS INTERN [address] [place] [address] Referral ID Status Reason Start Date Expiration Date Visits Requested Visits Authorized [id number] Authorized PCP Requested Referral 02/14/2023 02/14/2024 1 1 Additional Source Comments (unrecognized sect ion and content) No Status Records FoundNo Status Records FoundNo Status Records FoundNo Status Records FoundNo Status Records Found INFORMATION SOURCE (unrecogn ized section and content) DATE CREATED AUTHOR 03/08/[address] [facility] DATE CREATED AUTHOR AUTHOR'S ORGANIZ ATION 02/17/2023 [facility] DATE CREATED AUTHOR AUTHOR'S ORGANIZ ATION 02/26/[address] [facility] EPIC DATE CREATED AUTHOR AUTHOR'S ORGANIZ ATION 02/26/2024 [facility] DATE CREATED AUTHOR AUTHOR'S ORGANIZ ATION 03/28/2024 [facility] Source Comments (unrecognize d section and content) In the event this informatio n is protected by the Federal Confidentiality of Alcohol and Drug Abuse Patient Records regulations: The Federal rules restrict any use of the information to criminally investigate or prosecute any alcohol or drug abuse patient.[facility] Reason for Visit (unrecogniz ed section and content) Reason Comments Headache Care Teams (unrecognized sec tion and content) Portfolio Administrator Relationship Specialty Start Date End Date Kelly Ortiz MD [address] [place] [id number] PCP - General Family Medicine 01/18/13 FOR RECORDS PERTAINING TO PATIENTS WHO ARE OR HAVE BEEN ENROLLED IN A CHEMICAL DEPENDENCY/SUBSTANCEABUSE PROGRAM, SOME INFORMATION MAY BE OMITTED. This clinical summary was aggregated from multiple sources. Caution should be exercised in using it in the provision of clinical care. This summary normalizes information from multiple sources, and as a consequence, information in this document may materially change the coding, format and clinical context of patient data. In addition, data may be omitted in some cases. CLINICAL DECISIONS SHOULD BE BASED ON THE PRIMARY CLINICAL RECORDS. [employer] provides no warranty or guarantee of the accuracy or completeness of information in this document.
== END 2024-04-06 08:02 | disposition home or self-care (01) ==
LOC: CARD 08:02
PROVIDERS: PCP Family Medicine; Visit Provider Internal Medicine Cardiovascular Disease
DX: R07.89 Other chest pain (principal)
CPT/HCPCS: 93017

== ENCOUNTER 2024-07-03 10:26 | Outpatient (OUT) | payer BC, SELFPAY ==
--- OUTSIDE RECORDS SUMMARY | 2024-07-03 10:28 | XMS_ITS | CCD ---
Author Organization [facility] Care Team Providers Care Bed And Breakfast Operator Name Role Phone DR KELLY ORTIZ Attending Unavailable DR KELLY ORTIZ Consulting Unavailable DR KELLY ORTIZ Primary Care Unavailable DR KELLY ORTIZ Admitting Unavailable Kelly Ortiz MD Primary Care Provider KELLY ORTIZ Primary Care Unavailable LATASHA HUTTON Attending Unavailable LATASHA HUTTON Referring Unavailable Rogerio Gutierrez Attending Unavailab Rogerio Alonzo Admitting Unavailab francine REEVES FAMILY, PHYSICIAN Primary Care Unavailable MARILU DIAMOND Attending Unavailable LOWELL TREVIÑO Attending Unavailable Medications Completed/Discontinued Medications Medication Drug [...] disorder, unspecified type] Onset: 07-02-2012 02-14-2023 Chronic Headache; including migraine (1 source) Migraine; Translations: [Migraine, unspecified, not intractable, without status migrainosus] Onset: 07-02-2012 02-14-2023 Chronic Headache; including migraine (1 source) Headache; Translations: [Headache, unspecified headache type] 02-14-2023 Episodic Other eye disorders (1 source) Red eye; Translations: [Other specified disorders of eye and adnexa] 02-14-2023 Episodic Unclassified (3 sources) CONTACT W/AND (SUSP) EXPOS COVID-19; Translations: [CONTACT W/AND (SUSP) EXPOS COVID-19] Onset: 02-28-2021 Unclassified (1 source) Supraventricular tachycardia, unspecified; Translations: [Supraventricular tachycardia, unspecified] Onset: 05-25-2024 Past or Other Problems Problem Classification Problem Date Documented Date Episodic/Chronic Cardiac dysrhythmias (2 sources) Palpitations; Translations: [Palpitations] Onset: 03-22-2024 Episodic Nonspecific chest pain (2 sources) Other chest pain; Translations: [Other chest pain] Onset: 03-22-2024 Episodic Unclassified (1 source) CONTACT W/AND (SUSP) EXPOS COVID-19; Translations: [CONTACT W/AND (SUSP) EXPOS COVID-19] Onset: 02-22-2021 Unclassified (1 source) Supraventricular tachycardia, unspecified; Translations: [Supraventricular tachycardia, unspecified] Onset: 05-25-2024 Results Test Name Value Interpretation Reference Range Facil ity Orders Onlyon 06-28-2024 Orders Only [id number] Rekha Carroll 2005 M Date Provider Department Center 06/28/2024 GRACIE SUTTON [facility] Family History Problem Relation Age of Onset Hypertension Mother Diabetes type II Father Hypertension Father Stroke Maternal Grandfather Family Status - Relation Status Age at Mother Father Maternal Grandfather [facility] Office Visiton 05-25-2024 Follow-up visit [id number] Rekha Carroll M 2005 M Date Provider Department Center 05/25/2024 LOWELL SAENZ Family History Problem Relation Age of Onset Hypertension Mother Diabetes type II Father Hypertension Father Stroke Maternal Grandfather Family Status - Relation Status Age at Mother Father Maternal Grandfather Level of Service:88015 DC OFFICE/OUTPATIENT NEW HIGH MDM 60 MINUTES [facility] Orders Onlyon 05-25-2024 Orders Only [id number] Rekha Carroll M 2005 M Date Provider Department Center 05/25/2024 ARDEN PERRY Family History Problem Relation Age of Onset Hypertension Mother Diabetes type II Father Hypertension Father Stroke Maternal Grandfather Family Status - Relation Status Age at Mother Father Maternal Grandfather [facility] 36on 04-29-2024 34 Regarding stress terry t from 04/06/2024: MD Deanna Salcido MA Normal stress test at good level of exercise. Spoke with patient and informed him of test result. He has follow up with Dr. Treviño on 05/25. [facility] Orders Onlyon 04-13-2024 Orders Only [id number] Rekha Carroll M 2005 M Date Provider Department Center 04/13/2024 ARDEN PERRY Family History Problem Relation Age of Onset Hypertension Mother Diabetes type II Father Hypertension Father Stroke Maternal Grandfather Family Status - Relation Status Age at Mother Father Maternal Grandfather [facility] Office Visiton 03-22-2024 Follow-up visit [id number] Rekha Carroll Thad 2005 M Date Provider Department Center 03/22/2024 [id number] EAST Family History Problem Relation Age of Onset Hypertension Mother Diabetes type II Father Hypertension Father Stroke Maternal Grandfather Family Status - Relation Status Age at Mother Father Maternal Grandfather Level of Service:85651 DC OFFICE/OUTPATIENT NEW MODERATE MDM 45 MINUTES Reason for Visit and Comments: Palpitations [931195] - Had echo and EKG done this morning. Says he's stopped taking pysch med and stopped drinking caffeine in the past and still feels palpitations and chest pains. Chest Pain [959863] - C/o chest hurting . Says this always occurs with episodes of palpitations. Shortness of Breath [] - A little [facility] CNOVon 02-14-2023 CNOV Office Visit (EXPUSQ ) REKHA CARROLL ([id number]) [birth year] M Date Time Provider Department 02/14/23 11:25 AM YURIY BORJA EXPUSQ During your visit today, we recorded the following information about you: Temperature Pulse Blood pressure Weight 98.5 degrees 90/minute 124/80 56.7 kg Yuriy Borja APRN.SANDBLASTER SUPERVISOR 02/14/2023 12:58 PM Signed 17 year old [...] history is provided by the patient. No sql programmer was used. BP 124/80 (BP Site: Right [...] of motion. (more content not included)... Normal [facility] Covid-19 PCR (CVDTBH)on SARS-CoV-2 (COVID-19) RNA KAY+probe Ql (Unsp spec) Not detected Normal NOT DETECTED [facility] Comment on above: Result Comment: This test is not yet anselmo roved or cleared by the [place] FDA. When there are no FDA-approved or cleared tests available, and other criteria are met, FDA can make tests available under an emergency access mechanism called an Emergency Use Authorization (EUA). The EUA for this test is supported by the [place] of Health and Human Service's (HHS's) declaration [...] consistent with SARS-CoV-2. Performed By: #### C [facility] #### [facility] [address] [place] [address] Dr. Leila Bell Vital Signs Date Time Vital Sign Value Performing Clinician Marina solorznao 02-14-2023 11:39-0500 Body temperature 98.49 [degF] Yuriy Puljic COPY WORKER.SANDBLASTER SUPERVISOR Work Phone: [facility] 02-14-2023 11:39-0500 Body weight 56.7 kg Yuriy Puljic COPY WORKER.SANDBLASTER SUPERVISOR Work Phone: [facility] 02-14-2023 11:39-0500 Diastolic blood pressure 80 mm[Hg] Yuriy Puljic COPY WORKER.SANDBLASTER SUPERVISOR Work Phone: [facility] 02-14-2023 11:39-0500 Heart rate 90 /min Yuriy Puljic COPY WORKER.SANDBLASTER SUPERVISOR Work Phone: [facility] 02-14-2023 11:39-0500 SaO2% (BldA) [Mass fraction] 100 % Yuriy Puljic COPY WORKER.SANDBLASTER SUPERVISOR Work Phone: [facility] 02-14-2023 11:39-0500 Systolic blood pressure 124 mm[Hg] Yuriy Puljic COPY WORKER.SANDBLASTER SUPERVISOR Work Phone: [facility] Encounters Encounter Date Encounter Type Care Provider Facility Start: 05-25-2024 End: 05-25-2024 ambulatory LOWELL TREVIÑO [facility] Start: 05-18-2024 ambulatory Rogerio Knapp acility:[facility] [place] [facility] Start: 03-22-2024 End: 03-22-2024 ambulatory [facility] Start: 02-24-2023 End: 02-24-2023 ambulatory LATASHA HUTTON Not Available Start: 02-14-2023 End: 02-14-2023 ambulatory KELLY ORTIZ Facility:[facility] Start: 02-14-2023 End: 02-14-2023 Office outpatient new 30 minutes Yuriy Christyc COPY WORKER.SANDBLASTER SUPERVISOR Work Phone: [facility] Comment on above: Red eye (Primary Dx) ; Headache, unspecified headache type Start: 02-22-2021 End: 02-22-[address] KELLY ORTIZ Facility: Plan of Treatment Date Care Activity Detail Author Start: 01-26-2025 Urine microalbumin profile DTa P,Tdap,Td Vaccine (7 - Td or Tdap) [facility] Start: 11-15-2022 Covid-19 Vaccine () Covid-19 Vaccine () [facility] Start: 11-15-2022 Influenza vaccination Influenza Vacc ine (#1) [facility] Start: 03-17-2022 Depression Assessment Depression Ass essment [facility] Start: 11-23-2021 Meningococcal B Vacc ine: Consider Based On Risk (2 of 2 - Risk Bexsero 2-dose series) Meningococcal B Vaccine: Consider Based On Risk (2 of 2 - Risk Bexsero 2-dose series) [facility] Start: 2021 Hepatitis C Screening Hepatitis C Sc reening [facility] Start: 2021 HIV Screening HIV Screening [facility] Start: 2017 Peds To Adult Transi tion Annual Assessment Peds To Adult Transition Annual Assessment [facility] Start: 2015 Peds To Adult Transi tion Initial Discussion Peds To Adult Transition Initial Discussion [facility] Immunizations Immunization Date Immunization Notes Care Provider Mita wolff 01-04-2020 influenza virus vacc ine, unspecified formulation Yuriy Puljic COPY WORKER.SANDBLASTER SUPERVISOR Work Phone: [facility] Payers Date Payer Category Payer Self-pay 2022 Unknown [id number] 2019 Unknown [id number] 2018 Unknown [employer] PPO [id number] 2018-Present [phone] [address] [place] [address] PPO [id number] 2018 Unknown [id number] 2003 Unknown [id number] 1966 Unknown [id number] Unknown [id number] Social History Date Type Detail Facility Start: 02-14-2023 [facility] Start: 02-14-2023 Tobacco use and exposure Smoke less tobacco non-user [facility] Start: 02-14-2023 Alcohol intake Lifetime non-d griffin (finding) [facility] Start: 02-14-2023 History of Social function [facility] Start: 02-14-2023 Tobacco use panel [facility] Start: 2005 Sex Assigned At Not on file [facility] Progress note 05-25-2024 Note Date & Type Note Facility 05-25-2024 Note [place] Electrophysiology Consult Note [place] Cardiology - [facility] Reason for visit: SVT HPI: Rekha Carroll is a 19 y.o. year old with past medical history of ADHD who has been experiencing palpitations. He explains that this episodes happen spontaneously but are associated with chest discomfort and diaphoresis which lasted about 15 to 20 minutes and suddenly terminates he is exhausted after these episodes. And they occur fairly regularly with 2-3 episodes a month and sometimes even on a single day. He stopped Vyvanase (stimulant) and caffeine and did not see any difference. Had stress test in Mar 2024. The addition of metoprolol has decreased episodes of palpitations. Says he only feels them early in the AM when he stretches now. He was seen by Dr. GATES and attended event monitor was placed. This shows episodes of narrow complex tachycardia that was seen on 04/05/2024 at 8 PM as well as on other days such as 04/12/2024 during times of increased ventricular rate was close to 180 beats a minute. Other episodes shows long RP tachycardia presumably sinus tachycardia at 1 20-150 beats a minute with a rise and fall consistent with sinus tachycardia. Other than these episodes he is active and does not have other limiting factors. He is a 36 college student previously University including and works at [employer] in [place]. Regarding family history both parents have hypertension, father has diabetes, maternal grandparent had stroke. PMH: Past Medical History: Diagnosis Date ADHD Arrhythmia Asthma PSH: No past surgical history on file. SH: Social Determinants of Health Tobacco Use: Low Risk (03/22/2024) Patient History Smoking Tobacco Use: Never Smokeless Tobacco Use: Never Passive Exposure: Not on file Alcohol Use: Not on file Financial Resource Strain: Not on file Food Insecurity: Not on file Transportation Needs: Not on file Physical Activity: Not on file Stress: Not on file Social Connections: Not on file Intimate Partner Violence: Not on file Depression: Not on file Housing Stability: Not on file Utilities: Not on file Health Literacy: Not on file Allergies: No Known Allergies Weight: 56.7kg Visit Vitals BP 114/68 (BP Location: Left arm, Patient Position: Sitting) Pulse 77 Ht 1.626 m (5' 4 ) Wt 56.7 kg (125 lb) SpO2 97% BMI 21.46 kg/m??? Smoking Status Never BSA 1.6 m??? Meds: Current Outpatient Medications on File Prior to Visit Medication Sig Dispense Refill lisdexamfetamine (Vyvanse) 70 mg capsule Take 70 mg by mouth in the morning. metoprolol succinate XL (Toprol-XL) 25 mg 24 hr tablet Take 1 tablet (25 mg) by mouth in the morning. Do not crush or chew. 90 tablet 3 No current facility-administered medications on file prior to visit. ROS: Review of Systems Cardiovascular: Positive for chest pain, irregular heartbeat and palpitations. Musculoskeletal: Positive for muscle weakness. Neurological: Positive for weakness. All other systems reviewed and are negative. Physical Exam: Constitutional General Appearance: well-nourished, well-developed, appears stated age Level of Distress: comfortable Eyes DAVID Neck Neck: supple, trachea midline Carotid Arteries: bilateral normal upstroke, no bruits Jugular Veins: normal jugular venous pressure Thyroid: not enlarged Lungs Respiratory Effort: unlabored Chest Exam: normal curvature, no thoracic deformity Auscultation: clear, no wheezing, no rales, no rhonchi Cardiovascular Chest wall: Rate And Rhythm: regular Heart Sounds: normal S1, normal s2, no gallop Systolic Murmur: not heard Diastolic Murmur: not heard Extremities: no cyanosis, no edema, no peripheral signs of emboli Peripheral Pulses Radial Pulse: normal Abdomen Inspection and Palpation: soft, non distended, no bruit, non tender Neurologic Gait: normal gait Labs: @LABRESULTS@ No results found for: CHOLESTEROL TOTAL , HDL , LDL CALC , LDL DIRECT , TRIGLYCERIDES , TSH , T3 TOTAL , T4 TOTAL , THYROID PEROXIDASE AB , BNP EKG: No results found for this or any previous visit (from the past 4464 hour(s)). Echo: Stress test: Coronary angiogram: @CATH@ Diagnostic Imaging: No images are attached to the encounter. Assessment and Plan: -SVT: Event monitor reveals episodes of SVT of 190 to 290 bpm which is a narrow complex tachycardia. I discussed with the patient that the possibilities of atrial tachycardia versus AVNRT versus AVRT. Patient has been on stimulants since the age of third grade and despite that he has not seen any episodes which are all started over the past few months. Following a detailed discussion he wants to have a more permanent solution and that opted to proceed with an EP study and ablation. - ADHD: He is continuing with amphetamine analog. I discussed the procedure in length with figures to the patient and went over the risks, benefits and (more content not included)... [facility] Progress note 03-22-2024 Note Date & Type Note Facility 03-22-2024 Note [facility] Note Reason for cardiology [...] 03/22/2024 showed normal sinus rhythm with short DC interval, otherwise normal EKG. Echo 03/22/2024 Assessment [...] Follow-up in about 6 weeks Marilu Diamond MD,[facility] Progress note 02-14-2023 Note Date & Type Note Facility 02-14-2023 Note HNO ID: [id number] Author: Yuriy Borja APRN.SANDBLASTER SUPERVISOR Service: ? Author Type: Nurse Practitioner Type: [...] history is provided by the patient. No sql programmer was used. BP 124/80 (BP Site: Right [...] person, place, a (more content not included)... [facility] Instructions 02-14-2023 Patient Instructions Note Date & Type Note Facility 02-14-2023 Yuriy Ashford APRN.SANDBLASTER SUPERVISOR - 02/14/2023 12:21 PM EST [phone] [facility] PATIENT INFO CONJUNCTIVITIS OVERVIEW Conjunctivitis, also [...] the person should be evaluated by an food and beverage cashier. Contact lens wearers -- People who wear [...] within two weeks, an examination with an food and beverage cashier may be recommended. CONJUNCTIVITIS PREVENTION Bacterial and [...] for concern. INSTRUCTIONS: 1. You may use [id number] pain medication such as acetaminophen, ibuprofen, or [...] arms or legs. documented in this encounter [facility] History of Present illness Narrative 02-14-2023 [...] history is provided by the patient. No sql programmer was used. BP 124/80 (BP Site: Right [...] symptoms fail to improve. Yuriy Frias [address] [place] [id number] [facility] [phone] documented in this encounter [facility] Evaluation note Note Date & Type Note Facility Evaluation note Diagnosis Red eye- Primary Redness or discharge of eye Headache, unspecified headache type documented in this encounter [facility] Summary Purpose Family History No Family History Records FoundNo Family History Records FoundNo Family History Records FoundNo Family History Records FoundNo Family History Records Found Advance Directives No Advanced Directives Records FoundNo Advanced Directives Records FoundNo Advanced Directives Records FoundNo Advanced Directives Records FoundNo Advanced Directives Records Found Reason for Referral Specialty Diagnoses / Procedures Referred By Clarence t Referred To Contact Ophthalmology Diagnoses Red eye Procedures CONSULT TO OPHTHALMOLOGY OFFICE/OUTPATIENT [facility] 60-74 MINUTES Yuriy Borja APRN.CNP [address] [place] [address] Referral ID Status Reason Start Date Expiration Date Visits Requested Visits Authorized [id number] Authorized PCP Requested Referral 02/14/2023 02/14/2024 1 1 Additional Source Comments (unrecognized sect ion and content) No Status Records FoundNo Status Records FoundNo Status Records FoundNo Status Records FoundNo Status Records Found INFORMATION SOURCE (unrecogn ized section and content) DATE CREATED AUTHOR 03/08/2021 [facility] DATE CREATED AUTHOR AUTHOR'S ORGANIZ ATION 02/17/2023 [facility] DATE CREATED AUTHOR AUTHOR'S ORGANIZ ATION 02/26/2023 [facility] EPIC DATE CREATED AUTHOR AUTHOR'S ORGANIZ ATION 05/26/2024 [facility] DATE CREATED AUTHOR AUTHOR'S ORGANIZ ATION 06/29/2024 [facility] Source Comments (unrecognize d section and content) In the event this informatio n is protected by the Federal Confidentiality of Alcohol and Drug Abuse Patient Records regulations: The Federal rules restrict any use of the information to criminally investigate or prosecute any alcohol or drug abuse patient.[facility] Reason for Visit (unrecogniz ed section and content) Reason Comments Headache Care Teams (unrecognized sec tion and content) Bed And Breakfast Operator Relationship Specialty Start Date End Date Kelly Ortiz MD [facility] [place] [id number] PCP - General Family Medicine 01/18/13 FOR [...] BE BASED ON THE PRIMARY CLINICAL RECORDS. [employer] [facility]. provides no warranty or guarantee of the accuracy or completeness of information in this document.
[2024-07-03 10:44] LABS: Basophils Percent Auto 0.3 % (0.2-2.0); Eosinophils Absolute Auto 0.1 10^3/uL (0.0-0.7); Eosinophils Percent Auto 1.8 % (0.9-7.0); Hematocrit 47.2 % (42.0-54.0); Hemoglobin 15.8 g/dL (14.0-18.0); Immature Granulocytes Abs Auto 0.01 10^3/uL (0.00-0.03); Immature Granulocytes Pct Auto 0.2 % (0.0-0.5); Lymphocytes Absolute Auto 2.5 10^3/uL (1.2-3.8); Lymphocytes Percent Auto 37.1 % (20.5-60.0); Mean Corpuscular HGB Conc 33.5 g/dL (29.9-35.2); Mean Corpuscular Hemoglobin 29.9 pg (25.9-34.0); Mean Corpuscular Volume 89.2 fL (80.0-94.0); Mean Platelet Volume 9.2 fL (9.5-13.5); Monocytes Absolute Auto 0.5 10^3/uL (0.3-0.8); Monocytes Percent Auto 7.4 % (1.7-12.0); Neutrophils Absolute Auto 3.5 10^3/uL (1.4-6.5); Neutrophils Percent Auto 53.2 % (43.0-75.0); Platelet Count 284 10^3/uL (150-450); Red Blood Count 5.29 10^6/uL (4.70-6.10); Red Cell Distribution Width 12.1 % (11.0-15.0); White Blood Count 6.6 10^3/uL (4.0-11.0)
[2024-07-03 11:31] LABS: Anion Gap 13.6; BUN Creatinine Ratio 16.9; Calcium 8.9 mg/dL (8.5-10.1); Carbon Dioxide 28.4 mmol/L (21.0-32.0); Chloride 105 mmol/L (98-107); Estimated GFR (African America >60 (>=60 mL/min/1.73m^2); Estimated GFR (Non-African Ame >60 (>=60 mL/min/1.73m^2); Glucose 76 mg/dL (74-106); Sodium 143 mmol/L (136-145)
== END 2024-07-03 10:27 | disposition home or self-care (01) ==
LOC: LAB 10:26
PROVIDERS: PCP Family Medicine; Visit Provider Internal Medicine Cardiovascular Disease
DX: I47.10 Supraventricular tachycardia, unspecified (principal)
CPT/HCPCS: 36415; 80048; 85025